=== PATIENT | female | born 1955 | race Asian ===

== ENCOUNTER 2022-06-04 20:23 | Emergency (ER) | payer OTHER, MEDICAID ==
[~2022-06-04] VITALS: Ht 165.1 cm; Wt 74.8 kg
[2022-06-04 20:31] VITALS: BP_SYST 153
[2022-06-04] MEDS ORDERED: ACETAMINOPHEN 500 MG TABLET PO ONE (21:15)
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
--- NOTE | 2022-06-04 21:32 | NUR ---
ER Dr. Leon in triage examining patient.
[2022-06-04] MEDS ORDERED: NAPR-690 PO (23:10)
[2022-06-04 23:15] VITALS: BP_SYST 150
--- NOTE | 2022-06-04 23:15 | NUR ---
Patient given written and verbal discharge instructions by Dr Leon and verbalizes understanding. ER MD discussed with patient the results and treatment provided. Patient in stable condition.ID arm band removed by ER MD. Rx of Naproxen 500 mg tab sent to pharmacy of choice by ER MD. Patient educated on pain management and to follow up with PMD. Pain Scale 4/10. Opportunity for questions provided and answered by Dr Leon.
== END 2022-06-04 23:15 | disposition home or self-care (01) ==
LOC: SED 20:23
DX: S60.221A Contusion of right hand, initial encounter (principal); S09.90XA Unspecified injury of head, initial encounter; I10 Essential (primary) hypertension; Z79.899 Other long term (current) drug therapy; W22.10XA Striking against or struck by unspecified automobile airbag, initial encounter; Y93.89 Activity, other specified; Y92.89 Other specified places as the place of occurrence of the external cause; Y99.8 Other external cause status
CPT/HCPCS: 70450-TC; 76376; 99284